=== PATIENT | female | born 1980 | race Caucasian/White ===

== ENCOUNTER 2017-06-28 15:18 | Emergency (ER) | payer MEDICAID ==
[2015-11-29 22:34] VITALS: BMI 37.7
[~2017-06-28 15:18] MED LIST: COUMADIN5 MG PO; HYDROCODON-ACE1 EAC7 PO; NICODERM C1 PATCH .1 TRANSDERM; XARELTO20 MG PO
[2017-06-28 17:10] LABS: BASOPHILS 0.4 % (0-2); HEMATOCRIT 43.4 % (36.0-48.0); HEMOGLOBIN 13.9 g/dL (12-16); IMMATURE GRANULOCYTES 0.4 % (0-5); LYMPHOCYTES 31.5 % (15-50); MCH 27.9 pg (26.0-34.0); MEAN PLATELET VOLUME 12.2 fL (7.4-10.4); NEUTROPHILS 54.7 % (40-80); RBC 4.99 10x6/uL (4.00-5.40); RDW 17.3 % (11.5-14.5); WBC 8.4 10x3/uL (4.8-10.8)
[2017-06-28 17:12] LABS: PLATELET COUNT 143 10x3/uL (130-400)
[2017-06-28 17:19] LABS: INR 1.07 (0.85-1.17); PROTIME 13.8 SECONDS (11.6-15.0)
[2017-06-28 18:12] LABS: ALBUMIN 3.6 g/dL (3.4-5.0); BILIRUBIN - TOTAL 0.4 mg/dL (0.2-1.3); CARBON DIOXIDE 28.3 mmol/L (21.0-32.0); CREATININE - SERUM 0.9 mg/dL (0.6-1.3); MAGNESIUM - SERUM 1.9 mg/dL (1.8-2.4); POTASSIUM - SERUM 4.3 mmol/L (3.5-5.1)
== END 2017-06-28 18:20 | disposition home or self-care (01) ==
LOC: D.ER 15:18
PROVIDERS: Emergency Medicine
DX: R56.9 Unspecified convulsions (principal); Z86.79 Personal history of other diseases of the circulatory system; Z79.01 Long term (current) use of anticoagulants; Z86.73 Personal history of transient ischemic attack (TIA), and cerebral infarction without residual deficits; I10 Essential (primary) hypertension

== ENCOUNTER 2017-09-21 17:23 | Emergency (ER) | payer MEDICAID ==
[2015-11-29 22:34] VITALS: BMI 37.7
== END 2017-09-21 18:14 | disposition home or self-care (01) ==
LOC: D.ER 17:23
DX: L02.211 Cutaneous abscess of abdominal wall (principal)

== ENCOUNTER → 2019-11-12 13:38 | Outpatient (CLI) | payer MEDICAID ==
[2015-11-29 22:34] VITALS: BMI 37.7
== END | disposition home or self-care (01) ==
LOC: D.RAD 13:38
PROVIDERS: ATTEND Pain Medicine Interventional Pain Medicine
DX: M54.5 Low back pain (principal)

== ENCOUNTER 2020-11-05 21:44 | Inpatient (IN) | payer MEDICAID ==
[~2020-11-05] VITALS: Ht 170.2 cm; Wt 115.7 kg
[~2020-11-05 21:44] MED LIST changes: +AMITIZA8 MCG PO; +EFFEXOR75 MG PO; +GLUCOPHAGE500 MG PO; +HYDROCHLOROTHIA25 MG PO; +HYDROCODON-ACE1 EA10 PO; +KLONOPIN1 MG PO; +LYRICA50 MG PO; +OXYCONTIN10 MG PO; +VISTARIL50 MG PO
[2020-11-05] MEDS ORDERED: VALIUM5 MG PO (21:59)
[2020-11-05] MEDS ORDERED: MINIPRESS1 MG PO (22:00)
[2020-11-05] MEDS ORDERED: EFFEXOR XR150 MG PO (22:00)
[2020-11-05] MEDS ORDERED: LIPITOR10 MG PO (22:01)
[2020-11-05 22:46] LABS: BASOPHILS 0.6 % (0-2); EOSINOPHILS 3.5 % (0-7); HEMATOCRIT 38.1 % (36.0-48.0); HEMOGLOBIN 12.5 g/dL (12-16); IMMATURE GRANULOCYTES 0.1 % (0-5); LYMPHOCYTE ABS# 3.27 10x3/uL (1.18-3.74); LYMPHOCYTES 45.9 % (15-50); MCH 28.1 pg (26.0-34.0); MCHC 32.8 g/dL (31.0-37.0); MCV 85.6 fL (80.0-100.0); MEAN PLATELET VOLUME 10.8 fL (7.4-10.4); MONOCYTES 6.3 % (2-11); NEUTROPHIL ABS# 3.11 10x3/uL (1.56-6.13); NEUTROPHILS 43.6 % (40-80); RBC 4.45 10x6/uL (4.00-5.40); RDW 15.6 % (11.5-14.5); WBC 7.1 10x3/uL (4.8-10.8)
[2020-11-05 22:48] LABS: PLATELET COUNT 218 10x3/uL (130-400)
[2020-11-05 22:50] LABS: HCG SERUM NEGATIVE (NEGATIVE)
[2020-11-05 22:51] LABS: APTT 30.2 SECONDS (22.8-39.4); INR 1.16 (0.85-1.17); PROTIME 13.8 SECONDS (11.6-15.0)
[2020-11-05 22:52] LABS: D-DIMER-QUANTITATIVE 0.47 ug/mLFEU (0.20-0.54)
[2020-11-05 22:53] LABS: CALC OSMOLALITY 273 mosm/kg (275-300); CALCIUM 8.6 mg/dL (8.5-10.1); CARBON DIOXIDE 30.6 mmol/L (21.0-32.0); CHLORIDE - SERUM 99 mmol/L (98-107); GLUCOSE 179 mg/dL (74-106); POTASSIUM - SERUM 3.6 mmol/L (3.5-5.1); SODIUM 135 mmol/L (136-145); UREA NITROGEN 12 mg/dL (7-18); eGFR NON AFRICAN AMERICAN 64 mL/min (90-120)
[2020-11-05 23:07] LABS: ALBUMIN 3.2 g/dL (3.4-5.0); ALKALINE PHOSPHATASE 61 U/L (30-120); ALT (SGPT) 29 U/L (10-68); BILIRUBIN - TOTAL 0.24 mg/dL (0.2-1.3); CKMB 0.1 U/L (0.0-3.6); CREATINE KINASE 47 UL (21-215); PROTEIN - SERUM 6.5 g/dL (6.4-8.2)
[2020-11-05 23:08] LABS: TROPONIN-I < 0.017 ng/mL (0.000-0.060)
--- NOTE | 2020-11-05 23:36 | NUR ---
PATIENT IN ER FOR A DVT. HISTORY OF SUICIDE WHEN SHE WAS 12 YEARS OLD. SHE IS NOT SUICIDIAL. SHE HAS A WONDERFUL OUTLOOK ON LIFE, GOOD EYE CONTACT. LISTS REASONS FOR LIVING. 1800 NUMBER GIVEN FOR FUTURE REFRENCE
[2020-11-06 02:23] VITALS: BP 120/79
--- NOTE | 2020-11-06 03:02 | NUR ---
PT ARRIVED VIA STRETCHER FROM ER. NO DISTRESS NOTED.
[2020-11-06 03:16] VITALS: BP 130/77
[2020-11-06 03:34] VITALS: BP 130/77; BMI 40.1
[2020-11-06] MEDS ORDERED: PHENERGAN25 M1 PO (03:52)
[2020-11-06] MEDS ORDERED: FLUTICASONE PRO16 GM NASAL (03:54)
[2020-11-06] MEDS ORDERED: BENADRYL25 MG (03:55)
[2020-11-06] MEDS ORDERED: IBUPROFEN200 MG (03:55)
[2020-11-06] MEDS ORDERED: VOLTAREN100 GM (03:55)
[2020-11-06] MEDS ORDERED: BENADRYL25 MG PO (03:59)
--- NOTE | 2020-11-06 04:02 | NUR ---
admission assessment, history and home med list completed. oxycontin 10mg po ginve for /co chronic back and leg pain. iv to lac with heparin at 1300u/hr. iv patent. LUNGS DIMINISHED IN BASES BILAT. ALERT AND ORIENTED TO PERSON, PLACE AND TIME. NEVAREZ. SR PER CM HR 90. VSS. SR UP X1, CALL LIGHT WITHIN REACH.
--- NOTE | 2020-11-06 06:24 | NUR ---
AM FSBS 189. PT REFUSED INSULIN. NORCO PO GIVEN FOR C/O CHRONIC BACK PAIN. NEEDS MET; WILL CONTINUE TO MONITOR.
[2020-11-06 07:00] VITALS: BP 110/64
--- NOTE | 2020-11-06 07:05 | NUR ---
INITIAL SOUNDS MADE, PT RESTING COMFORTABLY IN BED, A/O X4, RESP EVEN AND NONLABORED ON RA. SR-81 ON TELEMETRY, PT NOW RATES PAIN LEVEL 5/10, WHICH STATES THAT'S AROUND WHAT LEVEL SHE CAN TOLERATE. PT DENIES ANY NEEDS AT THIS TIME. CALL LIGHT IN REACH, WILL CONTINUE PLAN OF CARE.
[2020-11-06 07:54] LABS: BASOPHILS 0.5 % (0-2); HEMATOCRIT 36.5 % (36.0-48.0); HEMOGLOBIN 11.9 g/dL (12-16); IMMATURE GRANULOCYTES 0.1 % (0-5); LYMPHOCYTE ABS# 3.69 10x3/uL (1.18-3.74); LYMPHOCYTES 47.1 % (15-50); MCH 28.1 pg (26.0-34.0); MCHC 32.6 g/dL (31.0-37.0); MCV 86.1 fL (80.0-100.0); MONOCYTES 7.3 % (2-11); NEUTROPHIL ABS# 3.22 10x3/uL (1.56-6.13); PLATELET COUNT 200 10x3/uL (130-400); RBC 4.24 10x6/uL (4.00-5.40); RDW 15.6 % (11.5-14.5); WBC 7.8 10x3/uL (4.8-10.8)
[2020-11-06 08:10] LABS: ALBUMIN 2.9 g/dL (3.4-5.0); ANION GAP 11.8 mmol/L (8-16); BILIRUBIN - TOTAL 0.25 mg/dL (0.2-1.3); CALCIUM 8.3 mg/dL (8.5-10.1); CARBON DIOXIDE 27.7 mmol/L (21.0-32.0); CREATININE - SERUM 0.9 mg/dL (0.6-1.3); MAGNESIUM - SERUM 1.7 mg/dL (1.8-2.4); PHOSPHOROUS 3.2 mg/dL (2.5-4.9); POTASSIUM - SERUM 3.5 mmol/L (3.5-5.1); PROTEIN - SERUM 5.9 g/dL (6.4-8.2)
[2020-11-06 08:11] LABS: INR 1.1 (0.85-1.17); PROTIME 13.2 SECONDS (11.6-15.0)
[2020-11-06 08:15] LABS: APTT 50.3 SECONDS (22.8-39.4)
[2020-11-06 11:08] LABS: INR 1.08 (0.85-1.17)
[2020-11-06 11:09] LABS: APTT 44.8 SECONDS (22.8-39.4)
--- NOTE | 2020-11-06 11:12 | NUR ---
BLOOD SUGAR OF 193- 2UNTIS GIVEN PER S/S. PT DENIES ANY NEEDS AT THIS TIME. CALL LIGHT IN REACH.
--- NOTE | 2020-11-06 12:48 | NUR ---
NORCO GIVEN FOR PAIN LEVEL OF 8/10. PT DENIES ANY OTHER NEEDS AT THIS TIME. CALL LIGHT IN REACH.
--- NOTE | 2020-11-06 16:49 | NUR ---
BLOOD SUGAR OF 190- 2UNITS GIVEN PER S/S.
[2020-11-06 17:13] VITALS: BP 109/69
[2020-11-06 20:00] VITALS: BP 106/64
[2020-11-07 02:27] LABS: BASOPHILS 0.7 % (0-2); EOSINOPHILS 3.6 % (0-7); HEMATOCRIT 37.6 % (36.0-48.0); HEMOGLOBIN 12.2 g/dL (12-16); IMMATURE GRANULOCYTES 0.2 % (0-5); LYMPHOCYTES 47.7 % (15-50); MCHC 32.4 g/dL (31.0-37.0); MCV 86.2 fL (80.0-100.0); MONOCYTES 7.1 % (2-11); NEUTROPHIL ABS# 2.48 10x3/uL (1.56-6.13); NEUTROPHILS 40.7 % (40-80); PLATELET COUNT 194 10x3/uL (130-400); RBC 4.36 10x6/uL (4.00-5.40); RDW 15.6 % (11.5-14.5); WBC 6.1 10x3/uL (4.8-10.8)
[2020-11-07 02:47] LABS: INR 1.13 (0.85-1.17); PROTIME 13.5 SECONDS (11.6-15.0)
[2020-11-07 02:55] LABS: APTT 81.8 SECONDS (22.8-39.4)
[2020-11-07 03:17] LABS: ANION GAP 7.9 mmol/L (8-16); CALCIUM 8.9 mg/dL (8.5-10.1); MAGNESIUM - SERUM 1.9 mg/dL (1.8-2.4); POTASSIUM - SERUM 3.9 mmol/L (3.5-5.1)
[2020-11-07 03:21] LABS: PHOSPHOROUS 4.3 mg/dL (2.5-4.9)
[2020-11-07 03:30] VITALS: BP 111/65
--- NOTE | 2020-11-07 08:54 | NUR ---
AM MEDS GIVEN ALSO GAVE NORCO FOR PAIN LEVEL OF 7/10. PT A/O X4, RESP EVEN AND NONLABORED ON RA. DENIES ANY NEEDS AT THIS TIME. CALL LIGHT IN REACH.
[2020-11-07] MEDS ORDERED: PRADAXA150 MG PO (10:47)
[2020-11-07 12:04] LABS: INR 1.55 (0.85-1.17); PROTIME 17.2 SECONDS (11.6-15.0)
--- NOTE | 2020-11-07 12:18 | NUR ---
PROVIDED VERBAL AND WRITTEN DISCHARGE TEACHING TO PT, WHO VERBALIZED UNDEDSTANDING REGARDING TEACHING. CHECKED O2 ON RA AND IT WAS 92%, EXPLAINED TO PT THAT IN ORDER TO QUALIFY FOR HOME O2 HER O2 WOULD HAVE TO BE BELOW 88% PT VERBALIZED UNDERSTANDING. D/C LT AC IV WITH CATHETER TIP INTACT. HEART MONITOR REMOVED AND TAKEN TO MANAGER PRODUCT. PT WAITING ON RIDE, WILL NOTIFY NURSE WHEN READY FOR WHEELCHAIR.
[2020-11-07 12:19] VITALS: Ht 170.2 cm; Wt 115.7 kg
--- NOTE | 2020-11-07 13:08 | NUR ---
WHEELED PT TO ER ENTRANCE WITH ALL BELONGIGNS, NAD NOTED.
== END 2020-11-07 13:09 | disposition home or self-care (01) | DRG 176 ==
LOC: D.ER 21:44 → D.M2 11-06 01:09 → D.EDHOLD 11-06 01:09 → D.M2 11-06 02:35
PROVIDERS: Family Medicine; ADMIT Family Medicine; ATTEND Family Medicine
DX: I26.99 Other pulmonary embolism without acute cor pulmonale (principal); I82.532 Chronic embolism and thrombosis of left popliteal vein; Z79.01 Long term (current) use of anticoagulants; E78.5 Hyperlipidemia, unspecified; G62.9 Polyneuropathy, unspecified; F41.9 Anxiety disorder, unspecified; F32.9 Major depressive disorder, single episode, unspecified; M79.7 Fibromyalgia; G89.4 Chronic pain syndrome; E78.1 Pure hyperglyceridemia

== ENCOUNTER 2020-12-01 20:50 | Emergency (ER) | payer BC ==
[~2020-12-01] VITALS: Ht 170.2 cm; Wt 111.4 kg
[~2020-12-01 20:50] MED LIST changes: +BENADRYL25 MG; +BENADRYL25 MG PO; +EFFEXOR XR150 MG PO; +FLUTICASONE PRO16 GM NASAL; +IBUPROFEN200 MG; +LIPITOR10 MG PO; +MINIPRESS1 MG PO; +PHENERGAN25 M1 PO; +PRADAXA150 MG PO; +VALIUM5 MG PO; +VOLTAREN100 GM
[2020-12-01 20:55] VITALS: Ht 170.2 cm; Wt 111.4 kg
[2020-12-01 21:16] LABS: BASOPHILS 0.2 % (0-2); EOSINOPHILS 2.1 % (0-7); HEMOGLOBIN 11.6 g/dL (12-16); IMMATURE GRANULOCYTES 0.1 % (0-5); LYMPHOCYTE ABS# 1.83 10x3/uL (1.18-3.74); LYMPHOCYTES 22.5 % (15-50); MCH 27.3 pg (26.0-34.0); MCHC 32.2 g/dL (31.0-37.0); MCV 84.7 fL (80.0-100.0); MEAN PLATELET VOLUME 10.7 fL (7.4-10.4); MONOCYTES 6.1 % (2-11); NEUTROPHIL ABS# 5.61 10x3/uL (1.56-6.13); PLATELET COUNT 225 10x3/uL (130-400); RBC 4.25 10x6/uL (4.00-5.40); RDW 15.6 % (11.5-14.5); WBC 8.1 10x3/uL (4.8-10.8)
[2020-12-01 21:30] LABS: CALC OSMOLALITY 280 mosm/kg (275-300); CALCIUM 8.4 mg/dL (8.5-10.1); CARBON DIOXIDE 28.2 mmol/L (21.0-32.0); CHLORIDE - SERUM 105 mmol/L (98-107); CREATININE - SERUM 0.7 mg/dL (0.6-1.3); GLUCOSE 142 mg/dL (74-106); INR 1.38 (0.85-1.17); POTASSIUM - SERUM 3.1 mmol/L (3.5-5.1); PROTIME 15.7 SECONDS (11.6-15.0); SODIUM 141 mmol/L (136-145); UREA NITROGEN 8 mg/dL (7-18); eGFR NON AFRICAN AMERICAN > 90 mL/min (90-120)
[2020-12-01 21:31] LABS: APTT 42.8 SECONDS (22.8-39.4)
[2020-12-01 21:32] LABS: D-DIMER-QUANTITATIVE < 0.27 ug/mLFEU (0.20-0.54)
[2020-12-01 21:36] LABS: ALBUMIN 3.1 g/dL (3.4-5.0); ALKALINE PHOSPHATASE 56 U/L (30-120); ALT (SGPT) 23 U/L (10-68); BILIRUBIN - TOTAL 0.35 mg/dL (0.2-1.3); PROTEIN - SERUM 6.1 g/dL (6.4-8.2)
[2020-12-01 21:54] LABS: BILIRUBIN NEGATIVE (NEGATIVE); KETONE NEGATIVE (NEGATIVE); NITRITE NEGATIVE (NEGATIVE); UROBILINOGEN NORMAL mg/dL (< 2)
[2020-12-01 22:15] LABS: UDS - AMPHET NEGATIVE QUAL (NEGATIVE); UDS - BARB NEGATIVE QUAL (NEGATIVE); UDS - BENZO POSITIVE QUAL (NEGATIVE); UDS - COCAINE NEGATIVE QUAL (NEGATIVE); UDS - OPIATE NEGATIVE QUAL (NEGATIVE); UDS - PCP NEGATIVE QUAL (NEGATIVE); UDS - THC NEGATIVE QUAL (NEGATIVE)
[2020-12-01 23:47] VITALS: BP 134/78
== END 2020-12-01 23:50 | disposition home or self-care (01) ==
LOC: D.ER 20:50
PROVIDERS: Family Medicine
DX: M79.604 Pain in right leg (principal); M54.10 Radiculopathy, site unspecified; E11.9 Type 2 diabetes mellitus without complications; E78.5 Hyperlipidemia, unspecified; Z79.01 Long term (current) use of anticoagulants; Z79.84 Long term (current) use of oral hypoglycemic drugs

== ENCOUNTER 2020-12-28 14:48 | Emergency (ER) | payer BC ==
[~2020-12-28] VITALS: Ht 170.2 cm; Wt 111.4 kg
[2020-12-28 14:50] VITALS: BP 145/90; Ht 170.2 cm; Wt 111.4 kg
[2020-12-28 15:30] LABS: BILIRUBIN NEGATIVE (NEGATIVE); KETONE NEGATIVE (NEGATIVE); NITRITE NEGATIVE (NEGATIVE); UDS - AMPHET NEGATIVE QUAL (NEGATIVE); UDS - BARB NEGATIVE QUAL (NEGATIVE); UDS - BENZO POSITIVE QUAL (NEGATIVE); UDS - COCAINE NEGATIVE QUAL (NEGATIVE); UDS - OPIATE POSITIVE QUAL (NEGATIVE); UDS - PCP NEGATIVE QUAL (NEGATIVE); UDS - THC NEGATIVE QUAL (NEGATIVE); UROBILINOGEN NORMAL mg/dL (< 2)
[2020-12-28 15:31] LABS: BACTERIA FEW HPF (NONE SEEN); SQUAMOUS EPITHELIAL 0-5 HPF (0-4); WHITE CELLS - URINE 0-5 HPF (0-4)
[2020-12-28 15:37] LABS: SARS-CoV-2 ANTIGEN NEGATIVE- SARS-COV-2 (NEGATIVE)
[2020-12-28 15:41] LABS: BASOPHILS 0.4 % (0-2); EOSINOPHILS 2.5 % (0-7); HEMATOCRIT 35.9 % (36.0-48.0); HEMOGLOBIN 11.5 g/dL (12-16); IMMATURE GRANULOCYTES 0.1 % (0-5); LYMPHOCYTE ABS# 1.44 10x3/uL (1.18-3.74); LYMPHOCYTES 20.3 % (15-50); MCH 26.2 pg (26.0-34.0); MCV 81.8 fL (80.0-100.0); MEAN PLATELET VOLUME 11.3 fL (7.4-10.4); MONOCYTES 7.6 % (2-11); NEUTROPHILS 69.1 % (40-80); PLATELET COUNT 222 10x3/uL (130-400); RBC 4.39 10x6/uL (4.00-5.40); WBC 7.1 10x3/uL (4.8-10.8)
[2020-12-28 16:04] LABS: CALC OSMOLALITY 283 mosm/kg (275-300); CARBON DIOXIDE 26.1 mmol/L (21.0-32.0); CHLORIDE - SERUM 107 mmol/L (98-107); CREATININE - SERUM 0.8 mg/dL (0.6-1.3); GLUCOSE 143 mg/dL (74-106); POTASSIUM - SERUM 4.1 mmol/L (3.5-5.1); SODIUM 142 mmol/L (136-145); UREA NITROGEN 10 mg/dL (7-18); eGFR NON AFRICAN AMERICAN 83 mL/min (90-120)
[2020-12-28 16:10] LABS: ALBUMIN 3.1 g/dL (3.4-5.0); ALKALINE PHOSPHATASE 61 U/L (30-120); ALT (SGPT) 31 U/L (10-68); MAGNESIUM - SERUM 1.9 mg/dL (1.8-2.4); PROTEIN - SERUM 6.2 g/dL (6.4-8.2)
== END 2020-12-28 21:38 ==
LOC: D.ER 14:48
PROVIDERS: Family Medicine
DX: R45.851 Suicidal ideations (principal); R45.850 Homicidal ideations; E11.9 Type 2 diabetes mellitus without complications; E78.5 Hyperlipidemia, unspecified; Z79.84 Long term (current) use of oral hypoglycemic drugs